=== PATIENT | male | born 1960 | race Caucasian/White ===

== ENCOUNTER 2021-06-05 13:28 | Observation (INO) ==
--- NOTE | 2021-06-05 13:57 | Emergency Department Note ---
Impression & Plan Non-ST elevated myocardial infarction, Retrosternal chest pain, SOB (shortness of breath) ED Provider Note INFORMANT: Patient ED PROVIDER(S): Huy Vazquez MD CHIEF COMPLAINT: Chest pain PLAN: Disposition: Admitted Condition: Good Outpatient prescription management: none Referral: None MEDICAL DECISION MAKING: Patient presented as noted below. He was doing well on initial evaluation. His ECG prehospital may have had some very subtle ST depression. The patient's ECG here did not show any obvious acute ischemic changes. His CBC and chemistry panel were unremarkable. D-dimer was negative. The patient's troponin was moderately elevated. This does raise concerns about ACS. Chest x-ray was negative. The patient was treated with Nitropaste, IV heparin, and IV metoprolol. I discussed further management in the hospital and the patient was in agreement. Consultation was made with the [facility] service. The patient was evaluated in the ER by Dr. Linares and admitted for further management. Triage Nursing notes reviewed and agree them. Vital Signs: reviewed and remarkable for no significant abnormalities Differential diagnosis: Cardiac ischemia, aortic dissection, pulmonary embolism, pneumothorax, pneumonia, pericarditis, myocarditis, esophageal rupture, GERD, cholecystitis, pancreatitis, musculoskeletal, as well as other pathologies. Diagnostics interpreted by me: ECG: Twelve-lead ECG reveals sinus tachycardia at 101 bpm. No evidence of ST elevation or depression. No PACs or PVCs. No prior for comparison. Cardiac Monitoring: Cardiac monitoring ordered by me: The patient was placed on continuous cardiac monitoring and observed. It revealed a normal sinus rhythm at 65 beats per minute without ectopy or evidence of dysrhythmia. Imaging studies: Chest x-ray. Findings: A chest x-ray was performed and revealed no pneumothorax, effusion, infiltrate, pulmonary edema, free air under the diaphragm, or wide mediastinum. Impression: No acute disease. HPI: The patient is a 61 year old male who presents to the Emergency Room with complaints of chest pain. This started 1 hour ago and is resolved. The patient also notes the following associated symptoms, retrosternal chest pain, SOB, palpitations, numbness in the right arm(which is not new). The patient has taken aspirin for relieving factors. Current pain is rated as 0/10. Pain was 6/1 0. Pt denies LOC, headache, fevers, chills, diaphoresis, visual changes, neck pain, nausea, vomiting, abdominal pain, back pain, melena, hematochezia, urinary symptoms, numbness, weakness, lymphadenopathy, rash, or other complaints. ROS: See above HPI for pertinent positives & negatives. A total of 10 systems reviewed and were otherwise negative. PAST MEDICAL HISTORY:See Below , denies PAST SURGICAL HISTORY:See Below, denies FAMILY HISTORY:See Below, CAD SOCIAL HISTORY:See Below, non-smoker HOME MEDICATIONS:See Below ALLERGIES:See Below VITALS:See Below PHYSICAL EXAMINATION: GENERAL: Awake, alert, well-appearing, in no distress HENT: Normocephalic, atraumatic. Oropharynx unremarkable. EYES: Normal conjunctiva. Sclera non-icteric. NECK: Inspection normal. Non-tender. Supple. No nuchal rigidity. FROM. No masses. RESPIRATORY: Clear to auscultation. No wheezes. No rales. Normal respiratory effort. CARDIAC: Normal rate. Normal rhythm. No murmurs. No rubs. Extremities warm and well perfused. Pulses equal. No JVD. GI: Soft, non-distended. No tenderness to palpation. No rebound or guarding. No masses. RECTAL: Deferred. MUSCULOSKELETAL: Atraumatic. Chest examination reveals no tenderness. The back is symmetrical on inspection without obvious abnormality. There is no CVA tenderness to palpation. No joint edema. LOWER EXTREMITIES: Calves are equal size bilaterally and non-tender. No edema. No discoloration. NEURO: Normal sensorium. No sensory or motor deficits noted. SKIN: No rash or jaundice noted. Huy Vazquez MD Past Med/Surg History Medical History Lumbar herniated disc Surgical History No significant past surgical history Family History (Updated 06/05/21 @ 18:32 by Stephenie Linares MD) Grandfather (Paternal) Coronary heart disease Father Coronary heart disease Social History (Updated 06/05/21 @ 18:34 by Stephenie Linares MD) Smoking Status: Never smoker Hx Alcohol Use: Yes Alcohol type: beer Alcohol type Comment: 2-3 beers Alcohol Intake Frequency: 4 or More x per/Week Hx Substance Use: No marital status: Life Partner current occupational status: employed current occupation: heating and air conditioning mechanic Feels Safe at Home: Yes Allergies Allergies Allergy/AdvReac Type Severity Reaction Status Date / Time No Known Allergies Allergy Unverified 06/05/21 15:40 Home Meds Home Medications Medication Instructions Recorded Confirmed [id number] 75 3 tab PO QPM 06/05/21 06/05/21 mg tablet (Immune Support Complex) turmeric 400 mg capsule 1,200 mg PO QPM 06/05/21 06/05/21 Results & Data (ED) Vital Signs Vital Signs - 24 hr 06/05/21 13:38 06/05/21 13:41 06/05/21 13:46 Temperature 37.0 C Temperature Source Oral Pulse Rate 107 H 102 H 107 H Pulse Rate [Right Finger] Pulse Rate from SpO2 Sensor 106 H 103 H Respiratory Rate 23 22 17 Blood Pressure 137/84 Blood Pressure [Right Arm] Blood Pressure Mean 101 Blood Pressure Mean [Right Arm] Blood Pressure Position Sitting Pulse Oximetry 95 94 96 Oxygen Delivery Method Room Air Sepsis Recent Fever Within 48 Hours No Sepsis New/Unexplained Change in Mental Status No Sepsis Action Taken by Nursing No Action Required 06/05/21 13:50 06/05/21 13:57 06/05/21 14:00 Temperature Temperature Source Pulse Rate 103 H 107 H Pulse Rate [Right Finger] Pulse Rate from SpO2 Sensor 102 H Respiratory Rate 17 Blood Pressure 129/89 Blood Pressure [Right Arm] Blood Pressure Mean 102 Blood Pressure Mean [Right Arm] Blood Pressure Position Pulse Oximetry 94 96 Oxygen Delivery Method Room Air Sepsis Recent Fever Within 48 Hours Sepsis New/Unexplained Change in Mental Status Sepsis Action Taken by Nursing 06/05/21 14:46 06/05/21 14:50 06/05/21 15:00 Temperature Temperature Source Pulse Rate 92 H 89 85 Pulse Rate [Right Finger] Pulse Rate from SpO2 Sensor 92 H 90 86 Respiratory Rate 17 17 21 Blood Pressure Blood Pressure [Right Arm] Blood Pressure Mean Blood Pressure Mean [Right Arm] Blood Pressure Position Pulse Oximetry 97 98 98 Oxygen Delivery Method Sepsis Recent Fever Within 48 Hours Sepsis New/Unexplained Change in Mental Status Sepsis Action Taken by Nursing 06/05/21 15:10 06/05/21 15:20 06/05/21 15:23 Temperature Temperature Source Pulse Rate 87 82 75 Pulse Rate [Right Finger] Pulse Rate from SpO2 Sensor 88 Respiratory Rate 18 15 Blood Pressure 139/94 Blood Pressure [Right Arm] Blood Pressure Mean Blood Pressure Mean [Right Arm] Blood Pressure Position Pulse Oximetry 96 Oxygen Delivery Method Sepsis Recent Fever Within 48 Hours Sepsis New/Unexplained Change in Mental Status Sepsis Action Taken by Nursing 06/05/21 15:29 06/05/21 15:30 06/05/21 15:40 Temperature Temperature Source Pulse Rate 70 64 Pulse Rate [Right Finger] 76 Pulse Rate from SpO2 Sensor 72 64 Respiratory Rate 16 18 20 Blood Pressure Blood Pressure [Right Arm] 139/94 Blood Pressure Mean Blood Pressure Mean [Right Arm] 109 Blood Pressure Position Pulse Oximetry 99 99 96 Oxygen Delivery Method Room Air Sepsis Recent Fever Within 48 Hours Sepsis New/Unexplained Change in Mental Status Sepsis Action Taken by Nursing 06/05/21 15:50 06/05/21 16:00 06/05/21 16:10 Temperature Temperature Source Pulse Rate 72 65 67 Pulse Rate [Right Finger] Pulse Rate from SpO2 Sensor 69 65 67 Respiratory Rate 18 21 23 Blood Pressure Blood Pressure [Right Arm] Blood Pressure Mean Blood Pressure Mean [Right Arm] Blood Pressure Position Pulse Oximetry 96 96 97 Oxygen Delivery Method Sepsis Recent Fever Within 48 Hours Sepsis New/Unexplained Change in Mental Status Sepsis Action Taken by Nursing 06/05/21 16:20 06/05/21 16:30 06/05/21 16:35 Temperature Temperature Source Pulse Rate 68 72 Pulse Rate [Right Finger] 66 Pulse Rate from SpO2 Sensor 68 68 Respiratory Rate 18 19 20 Blood Pressure Blood Pressure [Right Arm] Blood Pressure Mean Blood Pressure Mean [Right Arm] Blood Pressure Position Pulse Oximetry 95 98 96 Oxygen Delivery Method Room Air Sepsis Recent Fever Within 48 Hours Sepsis New/Unexplained Change in Mental Status Sepsis Action Taken by Nursing 06/05/21 16:40 06/05/21 16:50 06/05/21 17:00 Temperature Temperature Source Pulse Rate 62 63 70 Pulse Rate [Right Finger] Pulse Rate from SpO2 Sensor 64 62 70 Respiratory Rate 17 18 23 Blood Pressure Blood Pressure [Right Arm] Blood Pressure Mean Blood Pressure Mean [Right Arm] Blood Pressure Position Pulse Oximetry 97 96 98 Oxygen Delivery Method Sepsis Recent Fever Within 48 Hours Sepsis New/Unexplained Change in Mental Status Sepsis Action Taken by Nursing 06/05/21 17:10 06/05/21 17:20 06/05/21 17:30 Temperature Temperature Source Pulse Rate 65 69 66 Pulse Rate [Right Finger] Pulse Rate from SpO2 Sensor 68 69 66 Respiratory Rate 13 16 28 H Blood Pressure Blood Pressure [Right Arm] Blood Pressure Mean Blood Pressure Mean [Right Arm] Blood Pressure Position Pulse Oximetry 98 96 97 Oxygen Delivery Method Sepsis Recent Fever Within 48 Hours Sepsis New/Unexplained Change in Mental Status Sepsis Action Taken by Nursing 06/05/21 17:40 06/05/21 17:50 06/05/21 18:00 Temperature Temperature Source Pulse Rate 68 67 67 Pulse Rate [Right Finger] Pulse Rate from SpO2 Sensor 67 67 69 Respiratory Rate 20 22 20 Blood Pressure Blood Pressure [Right Arm] Blood Pressure Mean Blood Pressure Mean [Right Arm] Blood Pressure Position Pulse Oximetry 96 96 98 Oxygen Delivery Method Sepsis Recent Fever Within 48 Hours Sepsis New/Unexplained Change in Mental Status Sepsis Action Taken by Nursing 06/05/21 18:10 06/05/21 18:20 06/05/21 18:30 Temperature Temperature Source Pulse Rate 72 73 65 Pulse Rate [Right Finger] Pulse Rate from SpO2 Sensor 72 75 65 Respiratory Rate 24 18 19 Blood Pressure Blood Pressure [Right Arm] Blood Pressure Mean Blood Pressure Mean [Right Arm] Blood Pressure Position Pulse Oximetry 98 95 95 Oxygen Delivery Method Sepsis Recent Fever Within 48 Hours Sepsis New/Unexplained Change in Mental Status Sepsis Action Taken by Nursing Laboratory Data Result diagrams: 06/05/21 13:43 06/05/21 13:43 Lab Results 06/05/21 06/05/21 06/05/21 Range/Units 13:30 13:43 13:43 WBC 11.71 H (4.8-10.8) K/uL RBC 4.82 (4.7-6.1) M/uL Hgb 14.7 (14.0-18.0) g/dL Hct 44.0 (42-52) % MCV 91.3 (80-100) fL MCH 30.5 (25-34) pg MCHC 33.4 (32-36) g/dL RDW Std Deviation 43.5 (36.4-46.3) fL RDW Coeff of Christine 13.0 (11.5-14.5) % Plt Count 259 (130-400) K/uL MPV 9.6 (7.4-10.4) fL Immature Gran % (Auto) 0.4 % Neut % (Auto) 85.6 % Lymph % (Auto) 6.9 % [place] % (Auto) 6.7 % Eos % (Auto) 0.2 % Baso % (Auto) 0.2 % Neut # (Auto) 10.03 H (1.4-6.5) K/uL Lymph # (Auto) 0.81 L (1.2-3.4) K/uL [place] # (Auto) 0.78 H (0.11-0.59) K/uL Eos # (Auto) 0.02 (0-0.5) K/uL Baso # (Auto) 0.02 (0-0.2) K/uL Immature Gran # (Auto) 0.05 H (0.00-0.02) K/uL PT (9.0-12.0) Seconds INR (0.9-1.1) APTT (21.0-31.0) Seconds PTT Ratio D-Dimer 200 (0-500) ug/L FEU Sodium (136-145) mmol/L Potassium (3.5-5.1) mmol/L Chloride (98-107) mmol/L Carbon Dioxide (21-32) mmol/L Anion Gap (3-11) BUN (7-18) mg/dl Creatinine (0.6-1.4) mg/dl Est Cr Clr Drug Dosing ml/min Est GFR ( Amer) ml/min Est GFR (Non-Af Amer) ml/min BUN/Creatinine Ratio (10-20) Glucose (70-99) mg/dl Calcium (8.5-10.1) mg/dl Total Bilirubin (0.2-1) mg/dl AST (15-37) U/L ALT (12-78) U/L Alkaline Phosphatase (45-117) U/L Troponin I (0-0.045) ng/ml Total Protein (6.4-8.2) gm/dl Albumin (3.4-5.0) gm/dl Globulin (2.5-4.0) gm/dl Albumin/Globulin Ratio (0.9-2) Lipase (73-393) U/L SARS-CoV-2, RNA, NAAT NEGATIVE (NEGATIVE) 06/05/21 06/05/21 Range/Units 13:43 13:43 WBC (4.8-10.8) K/uL RBC (4.7-6.1) M/uL Hgb (14.0-18.0) g/dL Hct (42-52) % MCV (80-100) fL MCH (25-34) pg MCHC (32-36) g/dL RDW Std Deviation (36.4-46.3) fL RDW Coeff of Christine (11.5-14.5) % Plt Count (130-400) K/uL MPV (7.4-10.4) fL Immature Gran % (Auto) % Neut % (Auto) % Lymph % (Auto) % [place] % (Auto) % Eos % (Auto) % Baso % (Auto) % Neut # (Auto) (1.4-6.5) K/uL Lymph # (Auto) (1.2-3.4) K/uL [place] # (Auto) (0.11-0.59) K/uL Eos # (Auto) (0-0.5) K/uL Baso # (Auto) (0-0.2) K/uL Immature Gran # (Auto) (0.00-0.02) K/uL PT 10.5 (9.0-12.0) Seconds INR 1.0 (0.9-1.1) APTT 24.5 (21.0-31.0) Seconds PTT Ratio 0.9 D-Dimer (0-500) ug/L FEU Sodium 137 (136-145) mmol/L Potassium 3.6 (3.5-5.1) mmol/L Chloride 106 (98-107) mmol/L Carbon Dioxide 25 (21-32) mmol/L Anion Gap 6.0 (3-11) BUN 16 (7-18) mg/dl Creatinine 1.01 (0.6-1.4) mg/dl Est Cr Clr Drug Dosing 81.5 ml/min Est GFR ( Amer) 93.9 ml/min Est GFR (Non-Af Amer) 81.0 ml/min BUN/Creatinine Ratio 16.2 (10-20) Glucose 97 (70-99) mg/dl Calcium 9.0 (8.5-10.1) mg/dl Total Bilirubin 0.5 (0.2-1) mg/dl AST 23 (15-37) U/L ALT 24 (12-78) U/L Alkaline Phosphatase 64 (45-117) U/L Troponin I 0.131 H* (0-0.045) ng/ml Total Protein 7.3 (6.4-8.2) gm/dl Albumin 3.6 (3.4-5.0) gm/dl Globulin 3.7 (2.5-4.0) gm/dl Albumin/Globulin Ratio 1.0 (0.9-2) Lipase 109 (73-393) U/L SARS-CoV-2, RNA, NAAT (NEGATIVE) Administered Medications Heparin Sodium/Dextrose (Heparin Sodium/Dextrose) 25,000 units in 500 mls @ 18 mls/hr IV .Q24H [facility]; Protocol Stop: 07/05/21 14:59 Last Admin: 06/05/21 15:24 Dose: 900 units/hr, 18 mls/hr Documented by: [id number] Cosigned by: [id number] Discontinued Medications Heparin Sodium (Porcine) (Heparin Sod (Porcine) 1000 Unit/Ml) 1 units IV NOW ONE Stop: 06/05/21 14:58 Last Admin: 06/05/21 15:24 Dose: 4,000 units Documented by: [id number] Cosigned by: [id number] Heparin Sodium/Dextrose (Heparin Iv Adult Wt-Based Low-Dose With Bolus Protocol) 1 ea N/A NOW STA; Protocol Stop: 06/05/21 14:43 Last Admin: 06/05/21 15:23 Dose: 1 ea Documented by: [id number] Metoprolol Tartrate (Metoprolol Tartrate 1 Mg/Ml Vial) 2.5 mg IV NOW STA Stop: 06/05/21 14:53 Last Admin: 06/05/21 15:23 Dose: 2.5 mg Documented by: [id number] Nitroglycerin (Nitroglycerin 2% Ointment 30gm Tube) 0.5 inch EXT NOW STA Stop: 06/05/21 14:53 Last Admin: 06/05/21 15:23 Dose: 0.5 inch Documented by: [id number] Imaging Data Radiologist's Impression: Chest X-Ray 06/05/21 13:54 XR chest 1V portable CLINICAL HISTORY: Atypical chest pain. COMPARISON STUDY: No previous studies for comparison. FINDINGS: Lung volumes are normal. Lungs are clear. There is no pneumothorax or pleural effusion. Cardiac size is normal. Mediastinal contours are normal. There is no evidence for pulmonary edema. IMPRESSION: No acute cardiopulmonary findings. ACT 112: Negative or not required by law. Electronically signed by: Stephen Jim M.D. 06/05/2021 2:20 PM Discharge Plan Visit Data Chief Complaint: Cardiac Assessment Stated Complaint: chest tightness ED Provider: Huy Vazquez Discharge Problem: Non-ST elevated myocardial infarction, Retrosternal chest pain, SOB (shortness of breath) Forms Stand Alone Forms: [employer] Prescriptions Prescriptions: No Action turmeric 400 mg Capsule 1,200 mg PO QPM RF: 0 Immune Support Complex 75 mg Tablet 3 tab PO QPM RF: 0 Referrals Referrals: PCP,NO [Primary Care Provider] -
[2021-06-05 14:00] LABS: Basophils # (auto) 0.02 K/uL (0-0.2); Basophils % (auto) 0.2 %; Eosinophils # (auto) 0.02 K/uL (0-0.5); Eosinophils % (auto) 0.2 %; Hemoglobin 14.7 g/dL (14.0-18.0); Immature Granulocytes # (auto) 0.05 K/uL (0.00-0.02); Immature Granulocytes % (auto) 0.4 %; Lymphocytes # (auto) 0.81 K/uL (1.2-3.4); Lymphocytes % (auto) 6.9 %; Mean Corpuscular Hemoglobin 30.5 pg (25-34); Mean Corpuscular Hgb Conc 33.4 g/dL (32-36); Mean Corpuscular Volume 91.3 fL (80-100); Mean Platelet Volume 9.6 fL (7.4-10.4); Monocytes # (auto) 0.78 K/uL (0.11-0.59); Monocytes % (auto) 6.7 %; Neutrophils # (auto) 10.03 K/uL (1.4-6.5); Neutrophils % (auto) 85.6 %; Platelet Count 259 K/uL (130-400); RDW Standard Deviation 43.5 fL (36.4-46.3); Red Blood Count 4.82 M/uL (4.7-6.1); White Blood Count 11.71 K/uL (4.8-10.8)
[2021-06-05 14:16] LABS: Albumin Level 3.6 gm/dl (3.4-5.0); BUN Creatinine Ratio 16.2 (10-20); Creatinine Clr Calc Pharmacy 81.5 ml/min; D Dimer 200 ug/L FEU (0-500); Est GFR (African American) 93.9 ml/min; Potassium 3.6 mmol/L (3.5-5.1)
--- NOTE | 2021-06-05 14:21 | XRay Report ---
XR chest 1V portable CLINICAL HISTORY: Atypical chest pain. COMPARISON STUDY: No previous studies for comparison. FINDINGS: Lung volumes are normal. Lungs are clear. There is no pneumothorax or pleural effusion. Car diac size is normal. Mediastinal contours are normal. There is no evidence for pulmonary edema. IMPRESSION: No acute cardiopulmonary findings. ACT 112: Negative or not required by law. Electronically signed by: Stpehen Jim M.D. 06/05/2021 2:20 PM
[2021-06-05 14:30] LABS: Bilirubin,Total 0.5 mg/dl (0.2-1); Globulin 3.7 gm/dl (2.5-4.0); Total Protein 7.3 gm/dl (6.4-8.2); Troponin I 0.131 ng/ml (0-0.045)
[2021-06-05] MEDS ORDERED: Heparin IV Adult Wt-Based Low-Dose WITH Bolus Protocol STA (14:42)
[2021-06-05] MEDS ORDERED: METOPROLOL TARTRATE 1 MG/ML VIAL IV STA (14:52)
[2021-06-05] MEDS ORDERED: NITROGLYCERIN 2% OINTMENT 30GM TUBE EXT STA (14:52)
[2021-06-05] MEDS ORDERED: HEPARIN SOD (PORCINE) 1000 UNIT/ML IV ONE (14:57)
[2021-06-05] MEDS ORDERED: HEPARIN SODIUM/DEXTROSE 25,000 UNITS/500 ML BAG IV SCH (15:00)
[2021-06-05 15:22] LABS: Partial Thromboplastin Ratio 0.9; Partial Thromboplastin Time 24.5 Seconds (21.0-31.0); Prothrombin Time 10.5 Seconds (9.0-12.0)
--- NOTE | 2021-06-05 17:32 | Electrocardiogram Report ---
Test Reason : Blood Pressure : / mmHG Vent. Rate : 101 BPM Atrial Rate : 101 BPM P-R Int : 154 ms QRS Dur : 094 ms QT Int : 338 ms P-R-T Axes : 070 030 046 degrees QTc Int : 438 ms Sinus tachycardia Possible Left atrial enlargement Borderline ECG No previous ECGs available Confirmed by Homar Villalba ([id number]) on 06/05/2021 5:31:29 PM Referred By: REFERRED SELF Confirmed By:Rolando Villalba
--- NOTE | 2021-06-05 17:39 | History & Physical Report ---
Date of Service June 05, 2021 Assessment & Plan (1) Palpitations: Plan: Presented with approximately 1 hour of palpitations and subjective tachycardia prior to arrival with associated dyspnea and angina as well as presyncope Symptoms resolved on their own No previous history of such We do not have any of this captured on telemetry monitoring or ECG With associated elevated troponin and no underlying coronary artery disease that is known Could be SVT versus other tachyarrhythmia -Admit to telemetry for monitoring -Check echocardiogram -Electrolytes are all replete -Start metoprolol 12.5 mg p.o. twice daily for now -May need long-term cardiac event monitoring after discharge if no further tachyarrhythmia detected during this hospitalization (2) Retrosternal chest pain: Plan: Seemed typical in nature and was associated with tachycardia, resolved on its own and the tachycardia resolved Troponin is elevated at 0.1 on arrival ECG here is without ischemic changes Could be unstable angina in the setting of tachyarrhythmia versus myocardial demand ischemia He has no risk factors other than age for coronary artery disease -Trend serial troponin -Check echocardiogram for wall motion abnormalities -Check lipid panel in the morning -Continue heparin drip that was started in the ER in case of NSTEMI -Continue Nitropaste, aspirin 81 mg daily, and metoprolol low-dose at 12.5 mg p.o. twice daily -Consult cardiology in case of need for more invasive ischemic evaluation -N.p.o. after midnight in case of stress versus cardiac catheterization tomorrow (3) Elevated troponin: Plan: As above (4) Leukocytosis: Plan: Mildly elevated 11, likely stress response He is afebrile and has no other symptoms or signs of infection Follow CBC in the morning Plan: DVT prophylaxis-Heparin drip Disposition-admit to PCU on observation Full code He designates his daughter as his healthcare power of regulatory attorney, but would like his girlfriend also be involved in decisions History of Present Illness Chief Complaint: Chest pain, palpitations Primary Care Provider: NO PCP This patient is a 61-year-old male with no significant past medical history who is from out of town doing some work in the area. He presents today with onset of palpitations, shortness of breath, and chest pain while working. He does also report some occasional right upper extremity and left lower extremity weakness numbness, but that is more chronic. He reports acute onset of rapid heartbeat which he felt when he took his pulse in his carotid artery. 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 The rapid heartbeat continued on for at least 45 minutes to an hour. He then started feeling short of breath with it and at the 45-minute matilda, he started feeling very lightheaded. His coworkers then called the ambulance. He also experienced about 1-1/2 minutes of squeezing substernal chest pain that subsided right before the EMS got there. The rapid heartbeat also subsided as EMS was getting him inside the ambulance. The patient reports prior to this, he has never had anything like this. He has not passed out. He is very active and stays well-hydrated. He has no history of cardiac issues personally. He drinks 120 ounce coffee per day and drinks about 2-3 beers each night, and does not smoke. He denies any drug use. He was given 3 baby aspirin prior to arrival and prehospital EKG did show some subtle ST depressions as per ER physician, however I do not have that ECG for review. The patient reports that his heart rate was normal as per the congressional representative. In the ER, he was found to have mild leukocytosis, normal chemistry and LFTs, normal lipase, Covid negative, but his troponin was elevated at 0.131. A D-dimer was negative at 200. His chest x-ray was normal. The ECG performed in the ER showed sinus tachycardia with a rate of 101, possible left atrial enlargement, but no ST or T wave abnormalities. The ER physician started him on a heparin drip, placed on Nitropaste, and gave IV Lopressor 2.5 mg for NSTEMI He will be admitted for further work-up for unstable angina and tachycardia. Allergies Allergy/AdvReac Type Severity Reaction Status Date / Time No Known Allergies Allergy Unverified 06/05/21 15:40 Home Medications Medication Instructions Recorded Confirmed Type C-Zn-[id number].ginseng-des [id number] 75 3 tab PO QPM 06/05/21 06/05/21 History mg tablet (Immune Support Complex) turmeric 400 mg capsule 1,200 mg PO QPM 06/05/21 06/05/21 History Past Med/Surg History Medical History Lumbar herniated disc Surgical History No significant past surgical history Family History (Updated 06/05/21 @ 18:32 by Stephenie Linares MD) Grandfather (Paternal) Coronary heart disease Father Coronary heart disease Social History (Updated 06/05/21 @ 18:34 by Stephenie Linares MD) Smoking Status: Never smoker Hx Alcohol Use: Yes Alcohol type: beer Alcohol type Comment: 2-3 beers Alcohol Intake Frequency: 4 or More x per/Week Hx Substance Use: No marital status: Life Partner current occupational status: employed current occupation: mechanic industrial truck Feels Safe at Home: Yes Review of Systems Review of Systems: All systems reviewed & are unremarkable except as noted in HPI & below Denies fevers or chills, no headaches, no recent cold symptoms, no cough, no nausea or vomiting, no diaphoresis, no abdominal pains, no constipation or diarrhea, no dysuria, but does have urinary frequency which is chronic. Has chronic left sensory deficit in the left leg and foot from his herniated lumbar disc Physical Exam Constitutional: WD/WN, vitals as above Eyes: + anicteric sclerae; no conjunctival abnormality ENMT: external ear and nose normal, oropharynx normal Neck: trachea midline, no thyromegaly Respiratory: normal respiratory effort, lungs clear to auscultation Cardiovascular: RRR, no murmur, no edema Chest (Breasts): Chest: normal inspection of chest Gastrointestinal (Abdomen): normal bowel sounds, soft, nontender, no hepatosplenomegaly Musculoskeletal: Extremities: extremities normal to inspection; no cyanosis and no clubbing Skin: no rashes, warm and dry Neurologic: moves all extremities and awake; no focal motor deficits Psychiatric: A+Ox3, euthymic affect Lymphatic: no lymphedema Results & Data Results & Data ([facility]) Vital Signs (Past 12 Hours) Vital Signs Temp Pulse Pulse Resp BP BP Pulse Ox 06/05/21 16:35 66 20 96 06/05/21 15:29 76 16 139/94 99 06/05/21 15:23 75 139/94 06/05/21 13:57 107 H 96 06/05/21 13:46 37.0 C 107 H 17 137/84 96 Laboratory Results 06/05/21 06/05/21 06/05/21 Range/Units 13:43 13:43 13:43 WBC (4.8-10.8) K/uL RBC (4.7-6.1) M/uL Hgb (14.0-18.0) g/dL Hct (42-52) % MCV (80-100) fL MCH (25-34) pg MCHC (32-36) g/dL RDW Std Deviation (36.4-46.3) fL RDW Coeff of Christine (11.5-14.5) % Plt Count (130-400) K/uL MPV (7.4-10.4) fL Immature Gran % (Auto) % Neut % (Auto) % Lymph % (Auto) % Bent % (Auto) % Eos % (Auto) % Baso % (Auto) % Neut # (Auto) (1.4-6.5) K/uL Lymph # (Auto) (1.2-3.4) K/uL Bent # (Auto) (0.11-0.59) K/uL Eos # (Auto) (0-0.5) K/uL Baso # (Auto) (0-0.2) K/uL Immature Gran # (Auto) (0.00-0.02) K/uL PT 10.5 (9.0-12.0) Seconds INR 1.0 (0.9-1.1) APTT 24.5 (21.0-31.0) Seconds PTT Ratio 0.9 D-Dimer 200 (0-500) ug/L FEU Sodium 137 (136-145) mmol/L Potassium 3.6 (3.5-5.1) mmol/L Chloride 106 (98-107) mmol/L Carbon Dioxide 25 (21-32) mmol/L Anion Gap 6.0 (3-11) BUN 16 (7-18) mg/dl Creatinine 1.01 (0.6-1.4) mg/dl Est Cr Clr Drug Dosing 81.5 ml/min Est GFR ( Amer) 93.9 ml/min Est GFR (Non-Af Amer) 81.0 ml/min BUN/Creatinine Ratio 16.2 (10-20) Glucose 97 (70-99) mg/dl Calcium 9.0 (8.5-10.1) mg/dl Total Bilirubin 0.5 (0.2-1) mg/dl AST 23 (15-37) U/L ALT 24 (12-78) U/L Alkaline Phosphatase 64 (45-117) U/L Troponin I 0.131 H* (0-0.045) ng/ml Total Protein 7.3 (6.4-8.2) gm/dl Albumin 3.6 (3.4-5.0) gm/dl Globulin 3.7 (2.5-4.0) gm/dl Albumin/Globulin Ratio 1.0 (0.9-2) Lipase 109 (73-393) U/L SARS-CoV-2, RNA, NAAT (NEGATIVE) 06/05/21 06/05/21 Range/Units 13:43 13:30 WBC 11.71 H (4.8-10.8) K/uL RBC 4.82 (4.7-6.1) M/uL Hgb 14.7 (14.0-18.0) g/dL Hct 44.0 (42-52) % MCV 91.3 (80-100) fL MCH 30.5 (25-34) pg MCHC 33.4 (32-36) g/dL RDW Std Deviation 43.5 (36.4-46.3) fL RDW Coeff of Christine 13.0 (11.5-14.5) % Plt Count 259 (130-400) K/uL MPV 9.6 (7.4-10.4) fL Immature Gran % (Auto) 0.4 % Neut % (Auto) 85.6 % Lymph % (Auto) 6.9 % Bent % (Auto) 6.7 % Eos % (Auto) 0.2 % Baso % (Auto) 0.2 % Neut # (Auto) 10.03 H (1.4-6.5) K/uL Lymph # (Auto) 0.81 L (1.2-3.4) K/uL Bent # (Auto) 0.78 H (0.11-0.59) K/uL Eos # (Auto) 0.02 (0-0.5) K/uL Baso # (Auto) 0.02 (0-0.2) K/uL Immature Gran # (Auto) 0.05 H (0.00-0.02) K/uL PT (9.0-12.0) Seconds INR (0.9-1.1) APTT (21.0-31.0) Seconds PTT Ratio D-Dimer (0-500) ug/L FEU Sodium (136-145) mmol/L Potassium (3.5-5.1) mmol/L Chloride (98-107) mmol/L Carbon Dioxide (21-32) mmol/L Anion Gap (3-11) BUN (7-18) mg/dl Creatinine (0.6-1.4) mg/dl Est Cr Clr Drug Dosing ml/min Est GFR ( Amer) ml/min Est GFR (Non-Af Amer) ml/min BUN/Creatinine Ratio (10-20) Glucose (70-99) mg/dl Calcium (8.5-10.1) mg/dl Total Bilirubin (0.2-1) mg/dl AST (15-37) U/L ALT (12-78) U/L Alkaline Phosphatase (45-117) U/L Troponin I (0-0.045) ng/ml Total Protein (6.4-8.2) gm/dl Albumin (3.4-5.0) gm/dl Globulin (2.5-4.0) gm/dl Albumin/Globulin Ratio (0.9-2) Lipase (73-393) U/L SARS-CoV-2, RNA, NAAT NEGATIVE (NEGATIVE) Diagnostic Findings Chest x-ray image personally reviewed by me and agree with the following report: Chest X-Ray 06/05/21 13:54 XR chest 1V portable CLINICAL HISTORY: Atypical chest pain. COMPARISON STUDY: No previous studies for comparison. FINDINGS: Lung volumes are normal. Lungs are clear. There is no pneumothorax or pleural effusion. Cardiac size is normal. Mediastinal contours are normal. There is no evidence for pulmonary edema. IMPRESSION: No acute cardiopulmonary findings. ACT 112: Negative or not required by law. Electronically signed by: Stephen Jim M.D. 06/05/2021 2:20 PM ECG Additional Comments: ECG on 06/05/2021 at 1337 with sinus tachycardia, rate 101, no ischemic changes Code Status & VTE Plan Code Status Full code VTE Prophylaxis Plan VTE Prophylaxis will be ordered: Yes PG Care Time/CCT Total # of Minutes Spent Total Time Spent with Patient: Total time spent is greater than 50% in coordination of care (as documented) at patient's floor/unit and/or counseling patient: Coding Level of Care Code INT OBSERVATION CARE 70M LVL 3 Diagnoses Retrosternal chest pain R07.2 Palpitations R00.2 Elevated troponin R77.8 Leukocytosis D72.829
[2021-06-05] MEDS ORDERED: MoRPHine SULFATE 2 MG/ML CARP IV PRN (20:18)
[2021-06-05] MEDS ORDERED: NITROGLYCERIN SL 0.4 MG/TAB TAB SL PRN (20:18)
[2021-06-05] MEDS ORDERED: ONDANSETRON INJ 2 MG/ML 2 ML VIAL IV PRN (20:18)
[2021-06-05] MEDS ORDERED: ACETAMINOPHEN 325 MG TAB PO PRN (20:18)
[2021-06-05 20:37] LABS: Magnesium 2.4 mg/dl (1.8-2.4); Troponin I 0.509 ng/ml (0-0.045)
[2021-06-05] MEDS: NITROGLYCERIN 2% OINTMENT 30GM TUBE EXT SCH (21:14)
[2021-06-05] MEDS: METOPROLOL TARTRATE 25 MG TAB PO SCH (21:14)
[2021-06-06] MEDS: NITROGLYCERIN 2% OINTMENT 30GM TUBE EXT SCH ×3 (01:48→12:01)
[2021-06-06 02:14] LABS: Basophils # (auto) 0.03 K/uL (0-0.2); Basophils % (auto) 0.4 %; Eosinophils # (auto) 0.11 K/uL (0-0.5); Eosinophils % (auto) 1.3 %; Hemoglobin 13.6 g/dL (14.0-18.0); Immature Granulocytes # (auto) 0.06 K/uL (0.00-0.02); Immature Granulocytes % (auto) 0.7 %; Lymphocytes # (auto) 1.94 K/uL (1.2-3.4); Lymphocytes % (auto) 23.5 %; Mean Corpuscular Hemoglobin 30.5 pg (25-34); Mean Corpuscular Hgb Conc 33.2 g/dL (32-36); Mean Corpuscular Volume 91.9 fL (80-100); Mean Platelet Volume 9.6 fL (7.4-10.4); Monocytes # (auto) 0.87 K/uL (0.11-0.59); Monocytes % (auto) 10.5 %; Neutrophils # (auto) 5.26 K/uL (1.4-6.5); Neutrophils % (auto) 63.6 %; Platelet Count 262 K/uL (130-400); RDW Coefficient of Variation 13.2 % (11.5-14.5); Red Blood Count 4.46 M/uL (4.7-6.1); White Blood Count 8.27 K/uL (4.8-10.8)
[2021-06-06 02:34] LABS: BUN Creatinine Ratio 19.4 (10-20); Calcium 8.4 mg/dl (8.5-10.1); Creatinine Clr Calc Pharmacy 85.8 ml/min; Est GFR (African American) 99.9 ml/min; Est GFR (Non-African American) 86.2 ml/min; Potassium 3.7 mmol/L (3.5-5.1)
[2021-06-06 02:40] LABS: Troponin I 0.263 ng/ml (0-0.045)
[2021-06-06 03:48] LABS: Partial Thromboplastin Ratio 1.6; Partial Thromboplastin Time 40.9 Seconds (21.0-31.0)
--- NOTE | 2021-06-06 08:11 | Hospitalist Progress Note ---
Date of Service June 06, 2021 Assessment & Plan (1) Palpitations: Plan: Presented with approximately 1 hour of palpitations and subjective tachycardia prior to arrival with associated dyspnea and angina as well as presyncope Symptoms resolved on their own No previous history of such We do not have any of this captured on telemetry monitoring or ECG With associated elevated troponin and no underlying coronary artery disease that is known Could be SVT versus other tachyarrhythmia -Admit to telemetry for monitoring -Check echocardiogram -Electrolytes are all replete -Start metoprolol 12.5 mg p.o. twice daily for now -May need long-term cardiac event monitoring after discharge if no further tachyarrhythmia detected during this hospitalization (2) Retrosternal chest pain: Plan: Seemed typical in nature and was associated with tachycardia, resolved on its own and the tachycardia resolved Troponin is elevated at 0.1 on arrival ECG here is without ischemic changes Could be unstable angina in the setting of tachyarrhythmia versus myocardial demand ischemia He has no risk factors other than age for coronary artery disease -Trend serial troponin -Check echocardiogram for wall motion abnormalities -Check lipid panel in the morning -Continue heparin drip that was started in the ER in case of NSTEMI -Continue Nitropaste, aspirin 81 mg daily, and metoprolol low-dose at 12.5 mg p.o. twice daily -Consult cardiology in case of need for more invasive ischemic evaluation -N.p.o. after midnight in case of stress versus cardiac catheterization tomorrow (3) Elevated troponin: Plan: As above (4) Leukocytosis: Plan: Mildly elevated 11, likely stress response He is afebrile and has no other symptoms or signs of infection Follow CBC in the morning Plan: DVT prophylaxis-Heparin drip Disposition-admit to PCU on observation Full code He designates his daughter as his healthcare power of patent prosecution attorney, but would like his girlfriend also be involved in decisions Admission and Anticipated Discharge Date Admission Date: June 05, 2021 Results & Data Results & Data ([facility]) Vital Signs (Past 12 Hours) Vital Signs Pulse Pulse Resp BP BP Pulse Ox 06/06/21 06:01 61 16 119/73 97 06/06/21 04:06 60 20 124/65 97 06/06/21 01:30 71 18 96/53 L 93 06/06/21 01:05 54 L 16 103/62 94 06/06/21 01:00 60 20 95 06/06/21 00:30 59 L 15 06/06/21 00:00 59 L 16 06/05/21 23:30 57 L 13 06/05/21 23:00 69 20 95/80 L 96 06/05/21 22:30 63 16 06/05/21 22:00 63 12 96 06/05/21 21:30 65 19 06/05/21 21:00 67 14 94 06/05/21 20:30 64 13 105/71 94 06/05/21 20:18 95 PG Care Time/CCT Total # of Minutes Spent Total Time Spent with Patient: Total time spent is greater than 50% in coordination of care (as documented) at patient's floor/unit and/or counseling patient: Coding Diagnoses Palpitations R00.2 Retrosternal chest pain R07.2 Elevated troponin R77.8 Leukocytosis D72.829
[2021-06-06] MEDS: METOPROLOL TARTRATE 25 MG TAB PO SCH (08:32)
[2021-06-06] MEDS ORDERED: ASPIRIN 81 MG ECTAB PO SCH (09:00)
--- NOTE | 2021-06-06 09:09 | XCELERA ---
[id number]
--- NOTE | 2021-06-06 09:25 | Pre Anesthesia Assessment ---
Date of Service June 06, 2021 Pre Sedation Assessment Vital Signs Temp Pulse Pulse Resp BP BP Pulse Ox 06/06/21 08:00 36.8 C 61 17 118/70 97 06/06/21 06:01 61 16 119/73 97 06/06/21 04:06 60 20 124/65 97 06/06/21 01:30 71 18 96/53 L 93 06/06/21 01:05 54 L 16 103/62 94 06/06/21 01:00 60 20 95 06/06/21 00:30 59 L 15 06/06/21 00:00 59 L 16 06/05/21 23:30 57 L 13 06/05/21 23:00 69 20 95/80 L 96 06/05/21 22:30 63 16 06/05/21 22:00 63 12 96 06/05/21 21:30 65 19 06/05/21 21:00 67 14 94 06/05/21 20:30 64 13 105/71 94 06/05/21 20:18 95 06/05/21 20:00 70 30 H 95 06/05/21 19:30 77 17 95 06/05/21 19:00 65 20 96 06/05/21 18:30 65 19 95 06/05/21 18:20 73 18 95 06/05/21 18:10 72 24 98 06/05/21 18:00 67 20 98 06/05/21 17:50 67 22 96 06/05/21 17:40 68 20 96 06/05/21 17:30 66 28 H 97 06/05/21 17:20 69 16 96 06/05/21 17:10 65 13 98 06/05/21 17:00 70 23 98 06/05/21 16:50 63 18 96 06/05/21 16:40 62 17 97 06/05/21 16:35 66 20 96 06/05/21 16:30 72 19 98 06/05/21 16:20 68 18 95 06/05/21 16:10 67 23 97 06/05/21 16:00 65 21 96 06/05/21 15:50 72 18 96 06/05/21 15:40 64 20 96 06/05/21 15:30 70 18 99 06/05/21 15:29 76 16 139/94 99 06/05/21 15:23 75 139/94 06/05/21 15:20 82 15 06/05/21 15:10 87 18 96 06/05/21 15:00 85 21 98 06/05/21 14:50 89 17 98 06/05/21 14:46 92 H 17 97 06/05/21 14:00 129/89 06/05/21 13:57 107 H 96 06/05/21 13:50 103 H 17 94 06/05/21 13:46 37.0 C 107 H 17 137/84 96 06/05/21 13:41 102 H 22 94 06/05/21 13:38 107 H 23 95 Cardiovascular + regular rate and + regular rhythm Respiratory + respiratory effort normal Pre-Sedation Airway Assessment Smoking Status: Never smoker Hx Sleep Apnea: No Hx Difficult Intubation: No Short, Thick Neck: No Thyromental Distance: > or= 3.5 Finger Breadths Oral Cavity: + WNL Mallampati Class: III ASA: ASA3 Procedure Planning Contraindications for Sedation: none Current Medications Reviewed: Yes Notes The planned sedation has been discussed with the patient. Informed Consent was obtained. I have identified the patient, determined the appropriateness of sedation and have assessed the patient immediately prior to the procedure. All medicine(s) and interventions are by my order.
[2021-06-06] MEDS ORDERED: fentaNYL citrate 100 MCG/2 ML VIAL ONE (10:02)
[2021-06-06] MEDS ORDERED: HEPARIN (PORCINE) 1000 UNIT/ML 10 ML (CATH LAB USE ONLY) ONE (10:02)
[2021-06-06] MEDS ORDERED: MIDAZOLAM HCL 1 MG/ML 2ML VIAL ONE (10:02)
[2021-06-06] MEDS ORDERED: niCARdipine HCL INJ 2.5 MG/ML 10 ML AMP ONE (10:02)
[2021-06-06] MEDS ORDERED: NITROGLYCERIN/D5W 100MCG/ML 20ML SYR ONE (10:07)
--- NOTE | 2021-06-06 10:58 | Post Anesthesia Assessment ---
Date of Service June 06, 2021 Post Sedation Assessment Vital Signs Temp Pulse Pulse Resp BP BP Pulse Ox 06/06/21 08:00 36.8 C 61 17 118/70 97 06/06/21 06:01 61 16 119/73 97 06/06/21 04:06 60 20 124/65 97 06/06/21 01:30 71 18 96/53 L 93 06/06/21 01:05 54 L 16 103/62 94 06/06/21 01:00 60 20 95 06/06/21 00:30 59 L 15 06/06/21 00:00 59 L 16 06/05/21 23:30 57 L 13 06/05/21 23:00 69 20 95/80 L 96 06/05/21 22:30 63 16 06/05/21 22:00 63 12 96 06/05/21 21:30 65 19 06/05/21 21:00 67 14 94 06/05/21 20:30 64 13 105/71 94 06/05/21 20:18 95 06/05/21 20:00 70 30 H 95 06/05/21 19:30 77 17 95 06/05/21 19:00 65 20 96 06/05/21 18:30 65 19 95 06/05/21 18:20 73 18 95 06/05/21 18:10 72 24 98 06/05/21 18:00 67 20 98 06/05/21 17:50 67 22 96 06/05/21 17:40 68 20 96 06/05/21 17:30 66 28 H 97 06/05/21 17:20 69 16 96 06/05/21 17:10 65 13 98 06/05/21 17:00 70 23 98 06/05/21 16:50 63 18 96 06/05/21 16:40 62 17 97 06/05/21 16:35 66 20 96 06/05/21 16:30 72 19 98 06/05/21 16:20 68 18 95 06/05/21 16:10 67 23 97 06/05/21 16:00 65 21 96 06/05/21 15:50 72 18 96 06/05/21 15:40 64 20 96 06/05/21 15:30 70 18 99 06/05/21 15:29 76 16 139/94 99 06/05/21 15:23 75 139/94 06/05/21 15:20 82 15 06/05/21 15:10 87 18 96 06/05/21 15:00 85 21 98 06/05/21 14:50 89 17 98 06/05/21 14:46 92 H 17 97 06/05/21 14:00 129/89 06/05/21 13:57 107 H 96 06/05/21 13:50 103 H 17 94 06/05/21 13:46 37.0 C 107 H 17 137/84 96 06/05/21 13:41 102 H 22 94 06/05/21 13:38 107 H 23 95 Recovery Score Activity: Moves 4 extremities Respiration: Deep Breath/Cough Circulation: +/-20% PreAnes Value Consciousness: Fully Awake Oxygen Saturation: > 92% On Room Air Discharge Sedation Level of Care: Fast Track Phase II Post Sedation Plan On clinical assessment, the patient appears to have tolerated the sedation without complications. Patient is recovering as anticipated. Patient will continue to be monitored by nursing and may be discharged when sedation discharge criteria are met per below protocol. Upon Completions of procedure up to 15 minutes continue every 5 minute vital signs and the P.A.R. score; then discharge to a Phase I or Fast Track to Phase II per the following guidelines: * Discharge Patient to appropriate Phase II area if PAR is 8 or greater or return to pre- procedure baseline. The post - procedure orders will be as directed. * If PAR score is less than 8 or not return to pre-procedure baseline then patient will follow Phase I monitoring till PAR is reached for Phase II. The Phase I may be done in procedure room or may call to secure a Phase I area. * If naloxone or flumazenil are used for reversal, hold in Phase I for continued monitoring from when last reversal dose was given for a minimum of 60 minutes or longer pending the nurse and/or physician discretion of patient condition before discharge to Phase II. Please call the Sedation Physician to re-evaluate and complete post-note for discharge to Phase II area. Do NOT discharge from procedure sedation or Phase 1 until post- sedation evaluation note is complete by procedure /sedation MD Sedation Discharge Instructions to be given to the patient at discharge to home.
--- NOTE | 2021-06-06 10:59 | Cardiac Catheterization ---
[facility] Data: Registered Nurse Surgical Services Cardiac Status Clinical evaluation leading to the procedure CAD Presenation: Non STEMI Diagnostic Physicians Name: Homar Villalba MD Closure Device Recommendations: Medical Therapy and/or Counseling Cardiac Cath Procedure Full Procedure Date June 06, 2021 Pre-Procedure Diagnosis Pre-Procedure Diagnosis: Non STEMI AUC Score AUC Score: 8 Post-Procedure Diagnosis Post-Procedure Diagnosis: Mild CAD Procedure(s) Performed Procedure(s) Performed: Coronary Angiography and Left Heart Cath Partner Alliance Manager Homar Villalba MD Jack Machine Operator(s) none Estimated Blood Loss Estimated Blood Loss: 5cc Medication(s) Medication(s): Fentanyl, Heparin, Lidocaine 1%, Nicardipine, Nitroglycerin and Versed Summary of Findings Procedure performed: Left heart catheterization, selective coronary angiography Staff process area supervisor: Homar Villalba MD Indication: The patient is a 61-year-old gentleman who presented with an extended episode of tachycardia and elevated cardiac biomarkers. Procedure detail: The patient was informed the risks benefits and alternatives to the intended procedure. He understood which proceed. He was taken to the cardiac catheterization suite in a fasting state. Conscious sedation was administered per protocol the patient was monitored electrocardiographically throughout today's procedure. The left radial area was prepped and draped in usual sterile fashion. This area was anesthetized using subcutaneous menstruation of lidocaine solution. The left radial artery was subsequently accessed using Seldinger technique and sheath was placed over guidewire this site. The sheath was used facilitate passage of the cardiac catheter for selective coronary angiography and left heart catheterization. Images were obtained in multiple orthogonal views prior to removal of the catheter and sheath. Hemostasis was achieved at the access site using manual pressure. The patient tolerated procedure well. There were no immediate complications. Equipment used: Five [place] tiger 4 Findings: Coronary angiography Left main: Left main coronary artery is normal in size and caliber. It bifurcated normally into left anterior descending left circumflex arteries. There is no significant disease in this vessel. Left anterior descending: Left anterior descending was a large transapical vessel. It produced a small 1st diagonal with approximately 40% stenosis at its ostium. It produced a large 2nd diagonal branch. Just distal to the 2nd diagonal branch was approximately 50% stenosis of the LAD. There is a small 3rd diagonal without disease. Left circumflex: Left circumflex was a nondominant vessel. It produced a small 1st OM and a large 2nd OM system. There is a diminutive ongoing AV groove vessel. Right coronary artery: Right coronary artery was a dominant vessel providing a relatively small PDA. Luminal irregularities were noted throughout the right coronary but no obstructive lesions. Impression: Right dominant coronary system No evidence of aortic stenosis Normal left ventricular filling pressures Nonobstructive coronary disease involving D1 in the mid LAD. Hemodynamics Rest Ao:: 87/49 mm of mercury Final Ao: 154 mm of mercury LV: 89/0 mm of mercury Left ventricular end-diastolic pressure was 3 mm of mercury Recommendations Recommendations: Medical Therapy and/or Counseling Specimens Specimens: None Radiation Exposure (mGy) Seven hundred forty-one Contrast (mls) Forty-five Procedural Complication(s) None Disposition Registered Nurse Surgical Services Holding/Recovery I attest to the content of the Intraoperative Record and any orders documented therein. Any exceptions are noted below. [facility] Card Cath Procedure Codes Cardiac Catheterization Procedure 1: Cardiovascular Cath Procedures: 71707 Coronaries and LHC (+/-LV) Moderate Sedation Procedure 1: Sedation/Anesthesia: 78748 Mod Sedation by the same physician;Init15 Min Child Age 5 & Up Procedure 2: Sedation/Anesthesia: 02910 Mod Sedation by the same physician; Ea [id number] Minutes PG Care Time/CCT Total # of Minutes Spent Total Time Spent with Patient: Total time spent is greater than 50% in coordination of care (as documented) at patient's floor/unit and/or counseling patient:
--- NOTE | 2021-06-06 12:09 | Cardiology Consultation ---
Date of Consultation June 06, 2021 Assessment & Plan (1) Elevated troponin: (2) Palpitations: 1. Tachycardia: The patient reports a subjective sense of tachycardia and palpitation. He seems like a reliable historian and likely had an arrhythmia of sorts. Given his normal coronary anatomy, LV function otherwise good health this was likely a supraventricular tachycardia of sorts. This was the sole episode of palpitations. Unclear if he will have another. We did discuss the option of outpatient monitoring and I will prescribe him an outpatient event monitor to see if we can capture any arrhythmia. 2. Abnormal troponin: He did have some elevated cardiac biomarkers. Most like ly this represent demand ischemia in the setting of a prolonged tachycardia. He had some dyspnea but no significant chest pain. He does not report chest pain at other times and appears to be an active individual. We did discuss options for evaluation to include coronary angiography versus perfusion imaging. We elected to proceed with angiography for definitive evaluation and additional recommendations can be made based on those results. 3. Mitral regurgitation: Mild. This can be followed over time. History of Present Illness Reason for Consultation: Tachycardia, elevated troponin Requesting Physician: Vijay Attending Physician: Hosea Darling MD History of Present Illness The patient is a 61-year-old gentleman without a known history of cardiac disea se who presented for evaluation of palpitations and a sense of tachycardia. Patient noticed the onset of a rapid heartbeat fairly suddenly yesterday afternoon. He was not doing strenuous activity at the time. Initially he had few symptoms. He did develop some sense of dyspnea and mild dizziness as the symptoms persisted. He did have 1 episode of chest pain that was fleeting in nature. Based on the persistent nature of his tachycardia and progression of his symptoms EMS was contacted and he was transported to the hospital. He felt that the tachycardia resolved in route. Since that time he has felt well. He cannot recall similar symptoms in the past. He admits to being more sedentary recently. However he does not appear to have any symptoms associated with activity. He has not report any activity limitations other than some mild sciatica in his left leg. He attributes this to a bulging disc. He does not have a history of chest pains either at rest or with exertion. He has not report limiting dyspnea. He generally does not have dizziness. He has never suffered syncope Allergies Allergy/AdvReac Type Severity Reaction Status Date / Time No Known Allergies Allergy Unverified 06/05/21 15:40 Home Medications Medication Instructions Recorded Confirmed Type C-Zn-[id number].ginseng-des [id number] 75 3 tab PO QPM 06/05/21 06/05/21 History mg tablet (Immune Support Complex) turmeric 400 mg capsule 1,200 mg PO QPM 06/05/21 06/05/21 History Patient History Medical History Lumbar herniated disc Surgical History No significant past surgical history Family History (Updated 06/05/21 @ 18:32 by Stephenie Linares MD) Grandfather (Paternal) Coronary heart disease Father Coronary heart disease Social History (Updated 06/05/21 @ 18:34 by Stephenie Linares MD) Smoking Status: Never smoker Second Hand Exposure: No; Do You Dip or Chew Tobacco: No; Tobacco Cessation Education Requested by Patient: No Hx Alcohol Use: Yes Alcohol type: beer Alcohol type Comment: 2-3 beers Alcohol Intake Frequency: 4 or More x per/Week Hx Substance Use: No Preferred Language: Angolan Communication Ability: Effective Clinical Athletic Instructor Required: No Beliefs That Will Affect Care: None marital status: Life Partner Current Living Situation: Family current occupational status: employed current occupation: [employer] Other Information That Helps Us Care for You: No Feels Safe at Home: Yes Safety Concerns: Feels Safe At This Time Review of Systems Review of Systems: Per HPI. Physical Exam Physical Exam: The patient is alert and oriented. Mood and affect appeared normal. He answered all questions appropriately. HEENT: Pupils are equal and reactive to light and accommodation. Extraocular movements are intact. The sclerae are anicteric. Neuro: Cranial nerves intact Neck: Patient's neck is supple. He has palpable carotid pulses bilaterally without bruits on auscultation. There is no evidence of jugular venous distention. The thyroid is not enlarged. Lungs: Clear to auscultation bilaterally. He has good air movement without use of accessory muscles. No rales wheezes or rhonchi. Cardiac: Heart demonstrates a regular rate and rhythm. Normal S1 and S2. No murmurs on examination. Pulses: The patient has palpable radial pulses bilaterally that are equal in intensity Extremities: There was no evidence of hypoperfusion. There is no cyanosis or clubbing. There is no edema. Skin: I did not appreciate any rashes on examination today. Results & Data ([facility]) Vital Signs (Past 12 Hours) Vital Signs Temp Pulse Pulse Resp BP BP Pulse Ox 06/06/21 11:15 55 L 18 108/63 97 06/06/21 11:00 66 18 113/69 97 06/06/21 08:00 36.8 C 61 17 118/70 97 06/06/21 06:01 61 16 119/73 97 06/06/21 04:06 60 20 124/65 97 06/06/21 01:30 71 18 96/53 L 93 06/06/21 01:05 54 L 16 103/62 94 06/06/21 01:00 60 20 95 06/06/21 00:30 59 L 15 Laboratory Results Abnormal Lab Results 06/05/21 06/05/21 06/05/21 13:30 13:43 13:43 WBC 11.71 H RBC 4.82 Hgb 14.7 Hct 44.0 MCV 91.3 MCH 30.5 MCHC 33.4 RDW Std Deviation 43.5 RDW Coeff of Christine 13.0 Plt Count 259 MPV 9.6 Immature Gran % (Auto) 0.4 Neut % (Auto) 85.6 Lymph % (Auto) 6.9 [place] % (Auto) 6.7 Eos % (Auto) 0.2 Baso % (Auto) 0.2 Neut # (Auto) 10.03 H Lymph # (Auto) 0.81 L [place] # (Auto) 0.78 H Eos # (Auto) 0.02 Baso # (Auto) 0.02 Immature Gran # (Auto) 0.05 H PT INR APTT PTT Ratio D-Dimer 200 Sodium Potassium Chloride Carbon Dioxide Anion Gap BUN Creatinine Est Cr Clr Drug Dosing Est GFR ( Amer) Est GFR (Non-Af Amer) BUN/Creatinine Ratio Glucose Calcium Magnesium Total Bilirubin AST ALT Alkaline Phosphatase Troponin I Total Protein Albumin Globulin Albumin/Globulin Ratio Triglycerides Cholesterol LDL Cholesterol, Calc VLDL Cholesterol, Calc HDL Cholesterol Cholesterol/HDL Ratio Lipase SARS-CoV-2, RNA, NAAT NEGATIVE 06/05/21 06/05/21 06/05/21 13:43 13:43 19:47 WBC RBC Hgb Hct MCV MCH MCHC RDW Std Deviation RDW Coeff of Christine Plt Count MPV Immature Gran % (Auto) Neut % (Auto) Lymph % (Auto) [place] % (Auto) Eos % (Auto) Baso % (Auto) Neut # (Auto) Lymph # (Auto) [place] # (Auto) Eos # (Auto) Baso # (Auto) Immature Gran # (Auto) PT 10.5 INR 1.0 APTT 24.5 PTT Ratio 0.9 D-Dimer Sodium 137 Potassium 3.6 Chloride 106 Carbon Dioxide 25 Anion Gap 6.0 BUN 16 Creatinine 1.01 Est Cr Clr Drug Dosing 81.5 Est GFR ( Amer) 93.9 Est GFR (Non-Af Amer) 81.0 BUN/Creatinine Ratio 16.2 Glucose 97 Calcium 9.0 Magnesium 2.4 Total Bilirubin 0.5 AST 23 ALT 24 Alkaline Phosphatase 64 Troponin I 0.131 H* 0.509 H* Total Protein 7.3 Albumin 3.6 Globulin 3.7 Albumin/Globulin Ratio 1.0 Triglycerides Cholesterol LDL Cholesterol, Calc VLDL Cholesterol, Calc HDL Cholesterol Cholesterol/HDL Ratio Lipase 109 SARS-CoV-2, RNA, NAAT 06/06/21 06/06/21 06/06/21 01:38 01:38 03:25 WBC 8.27 RBC 4.46 L Hgb 13.6 L Hct 41.0 L MCV 91.9 MCH 30.5 MCHC 33.2 RDW Std Deviation 44.0 RDW Coeff of Christine 13.2 Plt Count 262 MPV 9.6 Immature Gran % (Auto) 0.7 Neut % (Auto) 63.6 Lymph % (Auto) 23.5 [place] % (Auto) 10.5 Eos % (Auto) 1.3 Baso % (Auto) 0.4 Neut # (Auto) 5.26 Lymph # (Auto) 1.94 [place] # (Auto) 0.87 H Eos # (Auto) 0.11 Baso # (Auto) 0.03 Immature Gran # (Auto) 0.06 H PT INR APTT 40.9 H PTT Ratio 1.6 D-Dimer Sodium 138 Potassium 3.7 Chloride 106 Carbon Dioxide 29 Anion Gap 3.0 BUN 19 H Creatinine 0.96 Est Cr Clr Drug Dosing 85.8 Est GFR ( Amer) 99.9 Est GFR (Non-Af Amer) 86.2 BUN/Creatinine Ratio 19.4 Glucose 93 Calcium 8.4 L Magnesium Total Bilirubin AST ALT Alkaline Phosphatase Troponin I 0.263 H* Total Protein Albumin Globulin Albumin/Globulin Ratio Triglycerides 83 Cholesterol 157 LDL Cholesterol, Calc 75 VLDL Cholesterol, Calc 17 HDL Cholesterol 65 Cholesterol/HDL Ratio 2 Lipase SARS-CoV-2, RNA, NAAT Diagnostic Findings Echocardiogram performed today revealed preserved LV systolic function and normal wall motion. Mild mitral regurgitation otherwise unremarkable Chest x-ray obtained the time admission did not reveal any acute cardiopulmonary process. ECG Additional Comments: I reviewed his EKGs from EMS as well as his EKG on admission. Normal sinus rhythm. No significant abnormalities. PG Care Time/CCT Total # of Minutes Spent Total Time Spent with Patient: Total time spent is greater than 50% in coordination of care (as documented) at patient's floor/unit and/or counseling patient: Coding Level of Care Code 24045 Office/OBS Consult Lvl 4 Diagnoses Elevated troponin R77.8 Palpitations R00.2
[2021-06-06 12:12] LABS: Partial Thromboplastin Ratio 1.8
[2021-06-06 12:53] LABS: Partial Thromboplastin Time 47.2 Seconds (21.0-31.0)
--- NOTE | 2021-06-06 18:52 | Discharge Summary ---
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 He presents today with onset of palpitations, shortness of breath, and chest pain while working. He does also report some occasional right upper extremity and left lower extremity weakness numbness, but that is more chronic. He reports acute onset of rapid heartbeat which he felt when he took his pulse in his carotid artery. 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 The rapid heartbeat continued on for at least 45 minutes to an hour. He then started feeling short of breath with it and at the 45-minute matilda, he started feeling very lightheaded. His coworkers then called the ambulance. He also experienced about 1-1/2 minutes of squeezing substernal chest pain that subsided right before the EMS got there. The rapid heartbeat also subsided as EMS was getting him inside the ambulance. The patient reports prior to this, he has never had anything like this. He has not passed out. He is very active and stays well-hydrated. He has no history of cardiac issues personally. He drinks 120 ounce coffee per day and drinks about 2-3 beers each night, and does not smoke. He denies any drug use. He was given 3 baby aspirin prior to arrival and prehospital EKG did show some subtle ST depressions as per ER physician, however I do not have that ECG for review. The patient reports that his heart rate was normal as per the state patrol officer. In the ER, he was found to have mild leukocytosis, normal chemistry and LFTs, normal lipase, Covid negative, but his troponin was elevated at 0.131. A D-dimer was negative at 200. His chest x-ray was normal. The ECG performed in the ER showed sinus tachycardia with a rate of 101, possible left atrial enlargement, but no ST or T wave abnormalities. The ER physician started him on a heparin drip, placed on Nitropaste, and gave IV Lopressor 2.5 mg for NSTEMI He will be admitted for further work-up for unstable angina and tachycardia. Principal Diagnosis non cardiac chest pain negative cardiac cath Discharge Exam The patient appeared well Vital signs as documented. Lungs are clear to auscultation and appear unlabored Cardiac exam, Rhythm is regular.. No murmurs, rubs or gallops. Abdominal exam reveals normal bowel sounds, soft non tender, no masses Extremities are nonedematous and both pedal pulses are normal. Neurologic exam is alert and oriented, no focal loss of strength or sensation Skin is without bruises or rashes Psychologically is without concerns for anxiety or depression. Discharge Data Allergies Allergy/AdvReac Type Severity Reaction Status Date / Time No Known Allergies Allergy Unverified 06/05/21 15:40 Consultations 06/05/21 14:55 ED Decision to Admit Stat 06/05/21 17:49 Consult Cardiology Routine Procedures Performed Operation Date: 06/06/21 10:30 Actual Procedures p Cineradiography w/Routine Exam - Felipe Villalba MD Ordered Studies 06/06/21 09:24 CL Cath Imgs for PACS use only Routine Hospital Course (1) Palpitations: Presented with approximately 1 hour of palpitations and subjective tachycardia prior to arrival with associated dyspnea and angina as well as presyncope Symptoms resolved on their own No previous history of such We do not have any of this captured on telemetry monitoring or ECG With associated elevated troponin and no underlying coronary artery disease that is known Could be SVT versus other tachyarrhythmia Patient underwent left heart cath Right dominant coronary system No evidence of aortic stenosis Normal left ventricular filling pressures Nonobstructive coronary disease involving D1 in the mid LAD.Just distal to the 2nd diagonal branch was approximately 50% stenosis of the LAD. (2) Retrosternal chest pain: ECG here is without ischemic changes non ischemic changes, will have home with Cardiology follow up and outpt multiday event monitor (3) Elevated troponin: As above, no significant CAD (4) Leukocytosis: Mildly elevated likely stress response He is afebrile and has no other symptoms or signs of infection discharge home with outpt cardiology follow up Full code He designates his daughter as his healthcare power of griddle cook, but would like his girlfriend also be involved in decisions Total Time Total Time Spent Total Time Spent (In Minutes): Discharge 32 including personal discussion with cardiology about this plan of care Discharge Plan Discharge Items Patient Disposition: Home - Self-Care Reason For Visit: chest tightness Discharge Diagnosis: non cardiac chest pain heart cath without occlusive coronary disease Activity: Per Instructions section Non-emergency contact: Primary Care Provider and Nightman Call non-emergency contact if: your symptoms worsen Follow-up/Referrals: PCP,NO [Primary Care Provider] - Diet: Regular Addtl Attending Provider Instructions: please be in contact with Dr Villalba for further follow up Pending Studies at Discharge: No Stand-Alone Forms: My [employer], Smoking Cessation Medications and DC Order Prescriptions: Continued turmeric 400 mg Capsule 1,200 mg PO QPM RF: 0 Immune Support Complex 75 mg Tablet 3 tab PO QPM RF: 0 Discharge Orders: Discharge Order (Routine); Ordered 06/06/21 Ordered By: Hosea Darling Admission Data Admit Date/Time: 06/05/21 17:49 Attending Provider: Hosea Darling Admit Provider: Stephenie Linares Primary Care Provider: PCP,NO Other Providers: Felipe Villalba ; Stephenie Linares Other Interventions: Discharge Summary Assessment (RN) Last Done: 06/06/21 14:27 Coding Level of Care Code 63740 OBS Care - Discharge Diagnoses Palpitations R00.2 Retrosternal chest pain R07.2 Elevated troponin R77.8 Leukocytosis D72.829
== END 2021-06-06 15:35 | disposition home or self-care (01) ==
LOC: ED 13:28 → EDINP 13:28 → SUATTDRO 17:49 → EDINP 20:17